=== PATIENT | female | born 1995 | race Hispanic/Latino ===

== ENCOUNTER 2018-07-23 09:25 | Inpatient (IN) | payer OTHER ==
[~2018-07-23] VITALS: Ht 162.6 cm; Wt 83.9 kg
[2018-07-23] MEDS ORDERED: LACTATED RINGERS 1000ML 1,000 ML IV PRN (10:11)
[2018-07-23 10:21] LABS: BASOPHILS % (AUTO) 0.5 % (0.0-5.0); EOSINOPHILS % (AUTO) 0.8 % (0.0-8.0); HEMATOCRIT 37.5 % (36-48); LYMPHOCYTES % (AUTO) 26.3 % (21.0-51.0); MEAN CORPUSCULAR HEMOGLOBIN 26.8 pg (27.0-33.0); MEAN CORPUSCULAR HGB CONC 32.5 g/dL (32.0-36.0); MEAN CORPUSCULAR VOLUME 82.7 fL (79-99); MONOCYTES % (AUTO) 6.3 % (3.0-13.0); NEUTROPHILS % (AUTO) 66.1 % (40.0-77.0); NUCLEATED RED BLOOD CELLS 0.1 % (0.0-0.19); PLATELET COUNT (AUTO) 133 K/uL (130-400); RED BLOOD CELL COUNT(AUTO) 4.53 MIL/uL (4.00-5.50); RED CELL DISTRIBUTION WIDTH 13.9 % (11.0-15.5)
[2018-07-23 10:40] LABS: INR 0.86 (0.85-1.15); PARTIAL THROMBOPLASTIN TIME 28.7 SEC (26.3-35.5); PROTHROMBIN TIME 9.1 SEC (9.6-11.6)
[2018-07-23] MEDS ORDERED: AMPICILLIN 2GM+NS 100ML 100 ML IV SCH (10:45)
[2018-07-23] MEDS ORDERED: AMPICILLIN 1GM+NS 50ML 50 ML IV SCH (10:45)
[2018-07-23 10:50] LABS: CREATININE 0.8 mg/dL (0.5-1.5); POTASSIUM 4.2 mmol/L (3.5-5.1)
[2018-07-23 10:55] LABS: ALBUMIN 2.2 g/dL (3.5-5.0); BILIRUBIN,TOTAL 0.1 mg/dL (0.2-1.0); TOTAL PROTEIN, SERUM 6.4 g/dL (6.0-8.3); URIC ACID 7.1 mg/dL (2.6-7.2)
[2018-07-23] MEDS ORDERED: OXYTOCIN 10 USP UNITS/ML 20 UNIT in LACTATED RINGERS 1000ML 1,000 ML IV SCH (11:30)
[2018-07-23] MEDS ORDERED: OXYTOCIN 10 USP UNITS/ML ONE ×2 (11:32→16:01)
[2018-07-23] MEDS ORDERED: LACTATED RINGERS 1000ML 1,000 ML IV ONE ×2 (11:32→16:01)
[2018-07-23] MEDS: OXYTOCIN-LR 20 UNITS/1000 ML 1,000 ML IV SCH ×2 (11:35→16:15)
[2018-07-23] MEDS ORDERED: PROMETHAZINE HCL 25 MG/ML 1ML AMPULE IM ONE (14:00)
[2018-07-23] MEDS ORDERED: MEPERIDINE-PF 50 MG/ML SYG IVP ONE (14:00)
[2018-07-23 14:34] LABS: APPEARANCE,URINE Clear (CLEAR); BILIRUBIN,URINE Negative (NEGATIVE); COLOR,URINE Yellow (YELLOW); GLUCOSE, URINE (UA) Negative (NEGATIVE); KETONES,URINE Negative (NEGATIVE); LEUKOCYTE ESTERASE ,URINE Negative (NEGATIVE); NITRATE,URINE Positive (NEGATIVE); OCCULT BLOOD,URINE Nonhemolyzed Trace (NEGATIVE); PH,URINE 6.5 (5.0-8.0); PROTEIN,URINE 300 (NEGATIVE); UROBILINOGEN,URINE 0.2 mg/dL (0.2-1.0)
[2018-07-23 15:01] LABS: BACTERIA,URINE Moderate /HPF (None Seen); SQUAMOUS EPITHELIAL CELL,UR 0-2 /HPF (0-2); WBC,URINE 0-1 /HPF (0-1)
[2018-07-23] MEDS ORDERED: DIPH,PERTUSS(ACELL),TET VAC/PF 0.5 ML VIAL IM PRN (16:15)
[2018-07-23] MEDS ORDERED: LANOLIN 30GM OINTMENT TP PRN (16:15)
[2018-07-23] MEDS ORDERED: ACETAMINOPHEN 325 MG TAB PO PRN (16:15)
[2018-07-23] MEDS ORDERED: BENZOCAINE/LANOLIN/ALOE VERA 60 ML AEROSOL TP PRN (16:15)
[2018-07-23] MEDS ORDERED: WITCH HAZEL 1 PAD TP PRN (16:15)
[2018-07-23] MEDS ORDERED: MEASLES/MUMPS/RUBELLA VACCINE, LIVE 0.5 ML/VIAL SQ PRN (16:15)
[2018-07-23] MEDS ORDERED: OXYTOCIN-LR 20 UNITS/1000 ML 1,000 ML IV SCH (16:15)
[2018-07-23 17:49] VITALS: BP 131/83
[2018-07-23] MEDS: IBUPROFEN 800 MG TAB PO PRN (18:00)
[2018-07-23] MEDS ORDERED: GLYB5TAB8 PO (18:12)
[2018-07-23] MEDS ORDERED: PREN-154 PO (18:12)
[2018-07-23 19:32] VITALS: BP 142/75
[2018-07-23] MEDS: DOCUSATE SODIUM 100 MG CAP PO SCH (21:02)
[2018-07-23 23:54] VITALS: BP 116/72
[2018-07-24 04:09] VITALS: BP 114/58
[2018-07-24] MEDS: IBUPROFEN 800 MG TAB PO PRN (04:25)
[2018-07-24 05:39] LABS: HEMATOCRIT 32.3 % (36-48); MEAN CORPUSCULAR HEMOGLOBIN 28.3 pg (27.0-33.0); MEAN CORPUSCULAR HGB CONC 34.3 g/dL (32.0-36.0); MEAN CORPUSCULAR VOLUME 82.4 fL (79-99); PLATELET COUNT (AUTO) 129 K/uL (130-400); RED BLOOD CELL COUNT(AUTO) 3.93 MIL/uL (4.00-5.50); RED CELL DISTRIBUTION WIDTH 14.1 % (11.0-15.5); WHITE BLOOD COUNT (AUTO) 7.7 K/uL (4.8-10.8)
[2018-07-24 07:39] VITALS: BP 133/85
[2018-07-24 08:18] LABS: HEPATITIS Bs ANTIGEN SCREEN P Negative (Negative)
[2018-07-24] MEDS: DOCUSATE SODIUM 100 MG CAP PO SCH (08:42)
[2018-07-24 11:22] VITALS: BP 135/74
[2018-07-24 15:44] VITALS: BP 137/90
== END 2018-07-24 16:20 | disposition home or self-care (01) | DRG 807 ==
LOC: LDH 09:25 → WSH 17:35
PROVIDERS: ADMIT Obstetrics & Gynecology; ATTEND Obstetrics & Gynecology
PROC: 10E0XZZ Delivery of Products of Conception, External Approach (ICD-10-PCS; principal; 2018-07-23)
PROC: 3E0234Z Introduction of Serum, Toxoid and Vaccine into Muscle, Percutaneous Approach (ICD-10-PCS; 2018-07-23)
PROC: 3E0134Z Introduction of Serum, Toxoid and Vaccine into Subcutaneous Tissue, Percutaneous Approach (ICD-10-PCS; 2018-07-23)
PROC: 10907ZC Drainage of Amniotic Fluid, Therapeutic from Products of Conception, Via Natural or Artificial Opening (ICD-10-PCS; 2018-07-23)
PROC: 3E033VJ Introduction of Other Hormone into Peripheral Vein, Percutaneous Approach (ICD-10-PCS; 2018-07-23)
DX: O99.824 Streptococcus B carrier state complicating childbirth (principal); Z37.0 Single live birth; O24.429 Gestational diabetes mellitus in childbirth, unspecified control; O16.4 Unspecified maternal hypertension, complicating childbirth; Z23 Encounter for immunization; Z3A.38 38 weeks gestation of pregnancy
CPT/HCPCS: 36415; 80053; 81001; 84550; 85025; 85027; 85384; 85610; 85730; 86592; 86850; 86900; 86901; 87340; A4351; J0290; J2175; J2550; J2590; J7120